=== PATIENT | female | born 1980 | race Caucasian/White ===

== ENCOUNTER 2019-09-30 17:32 | Emergency (ER) | payer OTHER, SELFPAY ==
[2019-09-30 17:35] VITALS: BP 131/86; PULSE 105; RESP 20; TEMP 37.1; O2SAT 100
--- NOTE | 2019-09-30 17:54 | ED.GENADULT ---
HPI - General Adult General Chief complaint: Dental/Oral Stated complaint: Abcess Tooth Time Seen by Provider: 09/30/19 17:54 Source: patient Mode of arrival: ambulatory Limitations: no limitations History of Present Illness HPI narrative: 38-year-old female patient presents to the [facility] with complaints of dental pain that started today. Patient states that she has had issues with her teeth and states that she needs several of them pulled and states she has had dental abscesses before in the past. Denies any fevers, body aches or chills. Denies any coughing. Patient states she noticed a little bump to the left lower gum today that is tender to the touch. Denies taking anything for pain so far. Related Data Home Medications Medication Instructions Recorded Confirmed alprazolam [Xanax] 0.5 mg PO QID 05/19/19 05/19/19 cyclobenzaprine 10 mg PO TID 05/19/19 05/19/19 diltiazem HCl [Cardizem] 60 mg PO TID 05/19/19 05/19/19 diphenhydramine HCl [Benadryl] 50 mg PO DAILY 05/19/19 05/19/19 gabapentin 300 mg PO TID 05/19/19 05/19/19 hydrocodone-acetaminophen 1 tablet PO QID 05/19/19 05/19/19 Allergies Allergy/AdvReac Type Severity Reaction Status Date / Time sulfamethizole Allergy Unknown Rash Verified 09/30/19 17:58 tramadol Allergy Unknown Nausea and Verified 09/30/19 17:58 Vomiting trimethoprim Allergy Unknown Unknown Verified 09/30/19 17:58 Anesthetics - Amide Type Allergy Unknown Verified 09/30/19 17:58 dexamethasone AdvReac Palpitation Verified 09/30/19 18:00 s MACROLIDES Allergy Unknown Rash Uncoded 05/19/19 19:01 NITRICOXIDE Allergy Unknown Nausea and Uncoded 05/19/19 19:01 Vomiting SALICYLATES Allergy Unknown Nausea and Uncoded 05/19/19 19:01 Vomiting XANTHINE Allergy Unknown Unknown Uncoded 05/19/19 19:01 STEROID AdvReac Unknown UNKNOWN Uncoded 01/14/18 18:45 NAME---CAUSED A FIB Review of Systems Review of Systems: Narrative: CONSTITUTIONAL: Denies fever, chills, or sweats. EYES: Denies visual changes, redness, or discharge. ENT: Denies rhinorrhea, congestion, sore throat, or otalgia. Positive left lower dental pain that started today CARDIOVASCULAR: Denies chest pain, palpitations, or edema. RESPIRATORY: Denies cough or dyspnea. GASTROINTESTINAL: Denies abdominal pain, nausea, vomiting, or diarrhea. GENITOURINARY: Denies dysuria or hematuria. SKIN: Denies rash or itching. MUSCULOSKELETAL: Denies back pain, joint pain, or myalgia. NEUROLOGIC: Denies headache, numbness, or weakness. PSYCHIATRIC: Denies anxiety or depression. [facility], [facility] Past Medical History Medical History (Updated 09/30/19 @ 18:06 by EVITA Ferrell) Anxiety Atrial fibrillation Cardiac disorder Tachycardia, ablation and loop recorder Cervical cancer Chronic back pain Degenerative disc disease Depression Migraines Seasonal allergies Surgical History Surgical History (Updated 09/30/19 @ 18:06 by EVITA Ferrell) H/O: hysterectomy History of appendectomy History of cholecystectomy Family History Family History Mother Hypertension Family history of heart disease in male family member before age 55 Social History Social History Smoking status: Never smoker Second hand tobacco smoke exposure: Yes Alcohol intake: never Comments At the time of my signature I agree with nursing past medical history, surgical, social, and family history. There is no relevant family history pertinent to the presenting complaint. Exam Narrative: Exam Narrative: GENERAL: Well-appearing, well-nourished, and in no acute distress. HEAD: Normocephalic, atraumatic. EYES: PERRLA and EOMI. ENT: Nares clear, no rhinorrhea or epistaxis. Mucous membranes moist. Patient has a small reddened area noted to the gum on the left lower oral cavity right under the left lower incisor. There is no open area or discha
== END 2019-09-30 18:05 | disposition home or self-care (01) ==
PROVIDERS: Emergency Provider Nurse Practitioner Family
DX: K04.7 Periapical abscess without sinus (principal)
CPT/HCPCS: 99213; G0463

== ENCOUNTER 2020-01-26 17:13 | Emergency (ER) | payer OTHER, SELFPAY ==
[2020-01-26 17:15] VITALS: BP 129/91; PULSE 93; RESP 20; TEMP 36.7; O2SAT 100
--- NOTE | 2020-01-26 17:28 | ED.DENTAL ---
HPI - Dental/Oral General Chief complaint: Dental/Oral Stated complaint: abcess tooth Time Seen by Provider: 01/26/20 17:28 Source: patient and RN notes reviewed History of Present Illness HPI Narrative: Patient is a 39-year-old female who presents the urgent care with complaints of left lower dental pain with swelling and redness. Patient states that she had a lot of lower [facility] and they did not place her on antibiotic after the extractions. Patient states she then followed up in the ER and was placed on clindamycin which she recently finished in the last couple days. Patient states that she has been using her prescription pain medicine but feels that the abscess is coming back . Patient denies of any known fevers, nausea, vomiting. No other acute complaints. No acute distress noted. Patient had a plan of care. Related Data Home Medications Medication Instructions Recorded Confirmed alprazolam [Xanax] 0.5 mg PO TID 05/19/19 01/26/20 cyclobenzaprine 10 mg PO TID 05/19/19 01/26/20 diltiazem HCl [Cardizem] 60 mg PO TID 05/19/19 01/26/20 gabapentin 300 mg PO QID 05/19/19 01/26/20 bupropion HCl 150 mg PO BID 09/30/19 01/26/20 albuterol sulfate 1 inh INHALATION QID PRN 01/26/20 01/26/20 albuterol sulfate [ProAir HFA] 2 puff INHALATION QID PRN 01/26/20 01/26/20 hydrocodone-acetaminophen 1 tablet PO Q6H PRN 01/26/20 01/26/20 Allergies Allergy/AdvReac Type Severity Reaction Status Date / Time sulfamethizole Allergy Unknown Rash Verified 01/26/20 17:36 trimethoprim Allergy Unknown Unknown Verified 01/26/20 17:36 tramadol AdvReac Unknown Nausea and Verified 01/26/20 17:36 Vomiting albuterol AdvReac Other Verified 01/26/20 17:36 ampicillin AdvReac Other Verified 01/26/20 17:36 Anesthetics - Amide Type AdvReac Other Verified 01/26/20 17:36 aspirin [From Fiorinal] AdvReac Unknown Verified 01/26/20 17:36 butalbital [From Fiorinal] AdvReac Unknown Verified 01/26/20 17:36 caffeine [From Fiorinal] AdvReac Unknown Verified 01/26/20 17:36 dexamethasone AdvReac Other Verified 01/26/20 17:36 erythromycin base AdvReac Palpitation Verified 09/30/19 19:18 s Review of Systems Review of Systems: Narrative: CONSTITUTIONAL: Denies fever, chills, or sweats. EYES: Denies visual changes, redness, or discharge. ENT: Denies rhinorrhea, congestion, sore throat, or otalgia. Reports of lower left dental pain with gum redness and swelling CARDIOVASCULAR: Denies chest pain, palpitations, or edema. RESPIRATORY: Denies cough or dyspnea. GASTROINTESTINAL: Denies abdominal pain, nausea, vomiting, or diarrhea. GENITOURINARY: Denies dysuria or hematuria. SKIN: Denies rash or itching. MUSCULOSKELETAL: Denies back pain, joint pain, or myalgia. NEUROLOGIC: Denies headache, numbness, or weakness. All other systems reviewed are negative, except as documented in HPI. [facility] Past Medical History Medical History (Updated 01/26/20 @ 17:39 by EVITA Wheatley) Anxiety Atrial fibrillation Cardiac disorder Tachycardia, ablation and loop recorder Cervical cancer Chronic back pain Degenerative disc disease Depression Migraines Seasonal allergies Surgical History Surgical History (Updated 09/30/19 @ 18:06 by EVITA Ferrell) H/O: hysterectomy History of appendectomy History of cholecystectomy Social History Social History Smoking status: Never smoker Second hand tobacco smoke exposure: Yes Alcohol intake: never Comments At the time of my signature, I reviewed and agree with the nursing past medical, surgical, social, and family history. There is no relevant family history pertinent to the patient complaint. Exam Narrative: Exam Narrative: GENERAL: This is a well-nourished, well-developed patient, in no apparent distress. HEAD: normocephalic, atraumatic. EYES: PERRL. Sclera clear/white. Vision is grossly intact. EARS: External
== END 2020-01-26 17:45 | disposition home or self-care (01) ==
PROVIDERS: Emergency Provider Nurse Practitioner Family
DX: K04.7 Periapical abscess without sinus (principal); K05.10 Chronic gingivitis, plaque induced; I48.91 Unspecified atrial fibrillation; F41.9 Anxiety disorder, unspecified; F32.9 Major depressive disorder, single episode, unspecified; Z85.41 Personal history of malignant neoplasm of cervix uteri
CPT/HCPCS: 99213; G0463

== ENCOUNTER 2020-07-20 15:21 | Emergency (ER) | payer OTHER, SELFPAY ==
[2020-07-20 15:25] VITALS: BP 120/81; PULSE 95; RESP 16; TEMP 37.1; O2SAT 98
--- NOTE | 2020-07-20 15:49 | ED.DENTAL ---
HPI - Dental/Oral General Stated complaint: jaw joint pain Time Seen by Provider: 07/20/20 15:49 Source: patient and RN notes reviewed History of Present Illness HPI Narrative: Patient is a 39-year-old female who presents the urgent care with complaints of jaw and right facial pain. Patient states that she had a TMJ flare on Saturday which seemed to improve. However the last 2 days have had increased right-sided facial pressure causing a migraine and another TMJ fit. Patient states that she does take 50 of Benadryl every morning as well as Flonase nasal spray. Patient denies of any dental pain, fever, chills, nausea, vomiting. Patient states that she did get all of her dentition fixed/pulled and is waiting on dentures. No other acute complaints. No acute distress noted. Patient aware of the plan of care. Some parts of this dictation were generated by voice recognition software and may contain typographical and/or grammatical inaccuracies. Related Data Home Medications Medication Instructions Recorded Confirmed alprazolam [Xanax] 0.5 mg PO TID 05/19/19 07/20/20 cyclobenzaprine 10 mg PO TID 05/19/19 07/20/20 diltiazem HCl [Cardizem] 60 mg PO TID 05/19/19 07/20/20 gabapentin 300 mg PO QID 05/19/19 07/20/20 bupropion HCl 150 mg PO BID 09/30/19 07/20/20 albuterol sulfate 1 inh INHALATION QID PRN 01/26/20 07/20/20 hydrocodone-acetaminophen 1 tablet PO Q6H PRN 01/26/20 07/20/20 Allergies Allergy/AdvReac Type Severity Reaction Status Date / Time sulfamethizole Allergy Unknown Rash Verified 07/20/20 15:25 trimethoprim Allergy Unknown Unknown Verified 07/20/20 15:25 tramadol AdvReac Unknown Nausea and Verified 07/20/20 15:25 Vomiting albuterol AdvReac Other Verified 07/20/20 15:25 ampicillin AdvReac Other Verified 07/20/20 15:25 Anesthetics - Amide Type - AdvReac Other Verified 07/20/20 15:25 Select A [Anesthetics - Amide Type] aspirin [From Fiorinal] AdvReac Unknown Verified 07/20/20 15:25 butalbital [From Fiorinal] AdvReac Unknown Verified 07/20/20 15:25 caffeine [From Fiorinal] AdvReac Unknown Verified 07/20/20 15:25 dexamethasone AdvReac Other Verified 07/20/20 15:25 erythromycin base AdvReac Palpitation Verified 07/20/20 15:25 s Review of Systems Review of Systems: Narrative: CONSTITUTIONAL: Denies fever, chills, or sweats. EYES: Denies visual changes, redness, or discharge. ENT: Denies rhinorrhea, congestion, sore throat, or otalgia. Reports of right sided jaw pain and facial pain CARDIOVASCULAR: Denies chest pain, palpitations, or edema. RESPIRATORY: Denies cough or dyspnea. GASTROINTESTINAL: Denies abdominal pain, nausea, vomiting, or diarrhea. GENITOURINARY: Denies dysuria or hematuria. SKIN: Denies rash or itching. MUSCULOSKELETAL: Denies back pain, joint pain, or myalgia. NEUROLOGIC: Denies headache, numbness, or weakness. All other systems reviewed are negative, except as documented in HPI. [facility]CLUD[facility] Past Medical History Medical History (Updated 07/20/20 @ 16:02 by EVITA Wheatley) Anxiety Atrial fibrillation Cardiac disorder Tachycardia, ablation and loop recorder Cervical cancer Chronic back pain Degenerative disc disease Depression Migraines Seasonal allergies Surgical History Surgical History (Updated 09/30/19 @ 18:06 by EVITA Ferrell) H/O: hysterectomy History of appendectomy History of cholecystectomy Family History Family History Mother Hypertension Family history of heart disease in male family member before age 55 Social History Social History Smoking status: Never smoker Second hand tobacco smoke exposure: Yes Alcohol intake: never Comments At the time of my signature, I reviewed and agree with the nursing past medical, surgical, social, and family history. There is no relevant family history pertinent to the patient complaint
== END 2020-07-20 16:05 | disposition home or self-care (01) ==
PROVIDERS: Emergency Provider Nurse Practitioner Family
DX: J32.9 Chronic sinusitis, unspecified (principal); M26.621 Arthralgia of right temporomandibular joint; F41.9 Anxiety disorder, unspecified; I48.91 Unspecified atrial fibrillation; F32.9 Major depressive disorder, single episode, unspecified; Z85.41 Personal history of malignant neoplasm of cervix uteri
CPT/HCPCS: 99213; G0463

== ENCOUNTER 2021-10-20 12:47 | Emergency (ER) | payer OTHER, SELFPAY ==
[2021-10-20 12:54] VITALS: BP 119/82; PULSE 86; RESP 16; TEMP 36.8; O2SAT 98
--- NOTE | 2021-10-20 13:40 | ED.FEMALEGU ---
HPI - Female Genitourinary General Chief complaint: Urogenital-Female Stated complaint: poss uti Time Seen by Provider: 10/20/21 13:40 Source: patient and RN notes reviewed Mode of arrival: ambulatory Limitations: no limitations History of Present Illness HPI Narrative: 40-year-old female presented for complaint of suprapubic pressure, urinary frequency and urgency onset 10/11/2021, worsening over the past 3 days. States urine is dark in color, endorses nausea, decreased appetite and bilateral low back pain. She denies abdominal pain, vomiting, fevers or chills. Related Data Home Medications Medication Instructions Recorded Confirmed diltiazem HCl 60 mg tablet 60 mg PO TID 05/19/19 10/20/21 (Cardizem) albuterol sulfate 90 mcg/actuation 1 inh inhalation QID PRN Shortness 01/26/20 10/20/21 aerosol inhaler Of Breath Or Wheezing cyclobenzaprine 10 mg tablet 10 mg PO TID PRN Muscle Spasm 10/20/21 10/20/21 sertraline 100 mg tablet 1 tablet PO BID 10/20/21 10/20/21 Allergies Allergy/AdvReac Type Severity Reaction Status Date / Time sulfamethizole Allergy Unknown Rash Verified 10/20/21 13:25 trimethoprim Allergy Unknown Unknown Verified 10/20/21 13:25 tramadol AdvReac Unknown Nausea and Verified 10/20/21 13:25 Vomiting albuterol AdvReac Other Verified 10/20/21 13:25 ampicillin AdvReac Other Verified 10/20/21 13:25 Anesthetics - Amide Type - AdvReac Other Verified 10/20/21 13:25 Select A [Anesthetics - Amide Type] aspirin [From Fiorinal] AdvReac Unknown Verified 10/20/21 13:25 butalbital [From Fiorinal] AdvReac Unknown Verified 10/20/21 13:25 caffeine [From Fiorinal] AdvReac Unknown Verified 10/20/21 13:25 dexamethasone AdvReac Other Verified 10/20/21 13:25 erythromycin base AdvReac Palpitation Verified 10/20/21 13:25 s Review of Systems Review of Systems: CONSTITUTIONAL: Denies body aches, fever, chills, or sweats. CARDIOVASCULAR: Denies chest pain, palpitations, or edema. RESPIRATORY: Denies cough or dyspnea. GASTROINTESTINAL: Denies abdominal pain, vomiting, or diarrhea. GENITOURINARY: Reports dysuria, frequency, urgency SKIN: Denies rash, itching, or wounds. MUSCULOSKELETAL: Denies back pain or myalgia. [facility] Past Medical History Medical History Anxiety Atrial fibrillation Cardiac disorder Tachycardia, ablation and loop recorder Cervical cancer Chronic back pain Degenerative disc disease Depression Migraines Seasonal allergies Surgical History Surgical History H/O: hysterectomy History of appendectomy History of cholecystectomy Family History Family History Mother Hypertension Family history of heart disease in male family member before age 55 Social History Social History Smoking packs per day: 0.5 Smoking cigarettes per day: 10.0 Years smoked: 27 Smoking pack-years: 13.50 Smoking status: Current every day smoker Second hand tobacco smoke exposure: Yes Alcohol intake: never Substance use: never Comments At time of signature, I have reviewed and agree with nursing past medical, surgical, social and family history unless otherwise noted. Please see nursing chart for further information. There is no relevant family history pertinent to the presenting complaint Exam Narrative: GENERAL: ill appearing, nontoxic ENT: Mucous membranes pink and moist. CHEST: No respiratory distress. Clear to auscultation. HEART: Regular rate and rhythm. ABDOMEN: Soft, tender to suprapubic chastity, nondistended, normal active bowel sounds. No CVA tenderness MUSCULOSKELETAL: No bony tenderness. SKIN: Warm, dry, no rash. NEURO: No focal deficits. Alert and oriented x3. Gait steady. Course Course Emergency Course: Patient is aware of diagn
== END 2021-10-20 13:55 | disposition home or self-care (01) ==
PROVIDERS: Emergency Provider Nurse Practitioner Family; PCP Internal Medicine
DX: N39.0 Urinary tract infection, site not specified (principal); F17.210 Nicotine dependence, cigarettes, uncomplicated; I48.91 Unspecified atrial fibrillation; F41.9 Anxiety disorder, unspecified; F32.A Depression, unspecified; Z85.41 Personal history of malignant neoplasm of cervix uteri
CPT/HCPCS: 81003; 87077; 87086; 87186; 99213; G0463

== ENCOUNTER 2021-10-25 16:07 | Emergency (ER) | payer OTHER, SELFPAY ==
[2021-10-25 16:20] VITALS: BP 119/81; PULSE 98; RESP 20; TEMP 36.8; O2SAT 98
--- NOTE | 2021-10-25 17:14 | ED.FEMALEGU ---
HPI - Female Genitourinary General Chief complaint: Urogenital-Female Stated complaint: poss uti Time Seen by Provider: 10/25/21 17:14 Source: patient and RN notes reviewed Mode of arrival: ambulatory Limitations: no limitations History of Present Illness HPI Narrative: 40 year old female who presents to [facility] care with stated continued complaints of abdominal cramping and radiation of pain into her back after taking RX of Macrobid for 5 days. Patient states that urinary burning is gone after taking Macrobid but continues to have some abdominal cramping with radiation of pain to right flank area and urinary urgency. Patient denies any history of kidney stones.Patient has appointment with PCP on the for follow up. Patient denies any vaginal discharge or any itching states no concerns for STD exposure. Patient denies any fevers chills or sweats, denies any nausea or vomiting. MD elicited complaint: dysuria and UTI Related Data Home Medications Medication Instructions Recorded Confirmed diltiazem HCl 60 mg tablet 60 mg PO TID 05/19/19 10/25/21 (Cardizem) albuterol sulfate 90 mcg/actuation 1 inh inhalation QID PRN Shortness 01/26/20 10/25/21 aerosol inhaler Of Breath Or Wheezing cyclobenzaprine 10 mg tablet 10 mg PO TID PRN Muscle Spasm 10/20/21 10/25/21 sertraline 100 mg tablet 1 tablet PO BID 10/20/21 10/25/21 oxycodone-acetaminophen 10 mg-325 1 tablet PO Q4H PRN Pain 10/25/21 10/25/21 mg tablet quetiapine 50 mg tablet (Seroquel) 50 mg PO HS 10/25/21 10/25/21 Allergies Allergy/AdvReac Type Severity Reaction Status Date / Time sulfamethizole Allergy Unknown Rash Verified 10/25/21 16:52 trimethoprim Allergy Unknown Unknown Verified 10/25/21 16:52 tramadol AdvReac Unknown Nausea and Verified 10/25/21 16:52 Vomiting albuterol AdvReac Other Verified 10/25/21 16:52 ampicillin AdvReac Other Verified 10/25/21 16:52 Anesthetics - Amide Type - AdvReac Other Verified 10/25/21 16:52 Select A [Anesthetics - Amide Type] aspirin [From Fiorinal] AdvReac Unknown Verified 10/25/21 16:52 butalbital [From Fiorinal] AdvReac Unknown Verified 10/25/21 16:52 caffeine [From Fiorinal] AdvReac Unknown Verified 10/25/21 16:52 dexamethasone AdvReac Other Verified 10/25/21 16:52 erythromycin base AdvReac Palpitation Verified 10/20/21 13:25 s Review of Systems Review of Systems: CONSTITUTIONAL: Denies fever, chills, or sweats. EYES: Denies visual changes, redness, or discharge. ENT: Denies rhinorrhea, congestion, sore throat, or otalgia. CARDIOVASCULAR: Denies chest pain, palpitations, or edema. RESPIRATORY: Denies cough or dyspnea. GASTROINTESTINAL: Reports some abdominal crampy, no nausea, vomiting, or diarrhea. GENITOURINARY: Reports urgency states burning is gone, no visible hematuria SKIN: Denies rash or itching. MUSCULOSKELETAL: Denies back pain, joint pain, or myalgia. NEUROLOGIC: Denies headache, numbness, or weakness. PSYCHIATRIC: Positive for history of anxiety or depression. [facility] Past Medical History Medical History Anxiety Atrial fibrillation Cardiac disorder Tachycardia, ablation and loop recorder Cervical cancer Chronic back pain Degenerative disc disease Depression Migraines Seasonal allergies Surgical History Surgical History H/O: hysterectomy History of appendectomy History of cholecystectomy Family History Family History Mother Hypertension Family history of heart disease in male family member before age 55 Social History Social History (Updated 10/27/21 @ 19:17 by Irma Layne NP) Smoking packs per day: 0.5 Smoking cigarettes per day: 10.0 Years smoked: 27 Smoking pack-years: 13.50 Smoking status: Current every day smoker Second hand tobacco smoke exposure: Yes Alcohol intake: never Subs
== END 2021-10-25 17:36 | disposition home or self-care (01) ==
PROVIDERS: Emergency Provider Registered Nurse
DX: R39.15 Urgency of urination (principal); R10.9 Unspecified abdominal pain; F17.210 Nicotine dependence, cigarettes, uncomplicated; F41.9 Anxiety disorder, unspecified; F32.A Depression, unspecified; I48.91 Unspecified atrial fibrillation; Z85.41 Personal history of malignant neoplasm of cervix uteri
CPT/HCPCS: 81003; 99213; G0463

== ENCOUNTER 2022-06-28 17:45 | Emergency (ER) | payer OTHER, SELFPAY ==
[2022-06-28 17:55] VITALS: BP 122/87; PULSE 82; RESP 20; TEMP 36.8; O2SAT 99
--- NOTE | 2022-06-28 18:39 | ED.DENTAL ---
HPI - Dental/Oral General Chief complaint: Dental/Oral Stated complaint: Abcess tooth Source: patient and RN notes reviewed History of Present Illness HPI Narrative: 41-year-old female presents to urgent care with complaints of left upper dental pain and swelling. Patient states she was treated for an ear infection with cephalexin approximately 2 weeks ago. Patient states this pain has been ever since she took her 3rd day of cephalexin. Patient denies any vomiting but reports nausea. Denies any fevers but reports chills. Denies any chest pain or shortness of breath. Some parts of this dictation were generated by voice recognition software and may contain typographical and/or grammatical inaccuracies. Related Data Home Medications Medication Instructions Recorded Confirmed diltiazem HCl 60 mg tablet 60 mg PO TID 05/19/19 06/28/22 (Cardizem) albuterol sulfate 90 mcg/actuation 1 inh inhalation QID PRN Shortness 01/26/20 06/28/22 aerosol inhaler Of Breath Or Wheezing cyclobenzaprine 10 mg tablet 10 mg PO TID PRN Muscle Spasm 10/20/21 06/28/22 oxycodone-acetaminophen 10 mg-325 1 tablet PO Q4H PRN Pain 10/25/21 06/28/22 mg tablet quetiapine 50 mg tablet (Seroquel) 50 mg PO HS 10/25/21 06/28/22 Allergies Allergy/AdvReac Type Severity Reaction Status Date / Time sulfamethizole Allergy Unknown Rash Verified 06/28/22 17:56 trimethoprim Allergy Unknown Unknown Verified 06/28/22 17:56 tramadol AdvReac Unknown Nausea and Verified 06/28/22 17:56 Vomiting albuterol AdvReac Other Verified 06/28/22 17:56 ampicillin AdvReac Other Verified 06/28/22 17:56 Anesthetics - Amide Type - AdvReac Other Verified 06/28/22 17:56 Select A [Anesthetics - Amide Type] aspirin [From Fiorinal] AdvReac Unknown Verified 06/28/22 17:56 butalbital [From Fiorinal] AdvReac Unknown Verified 06/28/22 17:56 caffeine [From Fiorinal] AdvReac Unknown Verified 06/28/22 17:56 dexamethasone AdvReac Other Verified 06/28/22 17:56 erythromycin base AdvReac Palpitation Verified 06/28/22 17:56 s Review of Systems Review of Systems: CONSTITUTIONAL: Denies fever, chills, or sweats. EYES: Denies visual changes, redness, or discharge. ENT: Reports left upper dental pain CARDIOVASCULAR: Denies chest pain, palpitations, or edema. RESPIRATORY: Denies cough or dyspnea. GASTROINTESTINAL: Denies abdominal pain, nausea, vomiting, or diarrhea. GENITOURINARY: Denies dysuria or hematuria. SKIN: Denies rash or itching. MUSCULOSKELETAL: Denies back pain, joint pain, or myalgia. NEUROLOGIC: Denies headache, numbness, or weakness. [facility] Past Medical History Medical History Anxiety Atrial fibrillation Cardiac disorder Tachycardia, ablation and loop recorder Cervical cancer Chronic back pain Degenerative disc disease Depression Migraines Seasonal allergies Surgical History Surgical History H/O: hysterectomy History of appendectomy History of cholecystectomy Family History Family History Mother Hypertension Family history of heart disease in male family member before age 55 Social History Social History (Updated 10/31/21 @ 08:56 by DIANE Daniel) Smoking packs per day: 0.5 Smoking cigarettes per day: 10.0 Years smoked: 27 Smoking pack-years: 13.50 Smoking status: Current every day smoker Second hand tobacco smoke exposure: Yes Alcohol intake: never Substance use: current Substance use type: opiates Last use: for chronic back pain Living arrangements: other Additional living arrangements comments: Occupation/Education: occupation Additional occupation/education comments: PA Gender identity (if verbalized by the patient): Female Sexual Orientation (if Verbalized by the Patient): Straight or Heterosexual Comments At
== END 2022-06-28 18:43 | disposition home or self-care (01) ==
PROVIDERS: Emergency Provider Nurse Practitioner Family
DX: K08.89 Other specified disorders of teeth and supporting structures (principal); F17.210 Nicotine dependence, cigarettes, uncomplicated; I48.91 Unspecified atrial fibrillation; F32.A Depression, unspecified; Z85.41 Personal history of malignant neoplasm of cervix uteri
CPT/HCPCS: 99213; G0463

== ENCOUNTER 2022-12-18 15:41 | Emergency (ER) | payer OTHER, SELFPAY ==
[2022-12-18 15:46] VITALS: BP 121/78; PULSE 89; RESP 14; TEMP 36.9; O2SAT 100
--- NOTE | 2022-12-18 16:38 | ED.GENADULT ---
HPI - General Adult General Chief complaint: Urogenital-Female Stated complaint: Sinus Pain/Urinary Problem Source: patient and RN notes reviewed History of Present Illness HPI narrative: 42-year-old female presents to urgent care with multiple medical complaints. Pt states she has had left upper dental pain and gum swelling for 2 weeks. Pt states she has now been having intermittent HAs, sore throat, left ear pain, lethargy, and lower abdominal cramping for the last couple days. Pt states she thinks she may have a UTI due to dysuria and foul smelling urine. Denies any vomiting, diarrhea, chest pain, or fevers. Pt reports chills. Related Data Home Medications Medication Instructions Recorded Confirmed diltiazem HCl 60 mg tablet 60 mg PO TID 05/19/19 12/18/22 (Cardizem) albuterol sulfate 90 mcg/actuation 1 inh inhalation QID PRN Shortness 01/26/20 12/18/22 aerosol inhaler Of Breath Or Wheezing quetiapine 50 mg tablet (Seroquel) 50 mg PO HS 10/25/21 12/18/22 Allergies Allergy/AdvReac Type Severity Reaction Status Date / Time sulfamethizole Allergy Unknown Rash Verified 12/18/22 15:49 trimethoprim Allergy Unknown Unknown Verified 12/18/22 15:49 tramadol AdvReac Unknown Nausea and Verified 12/18/22 15:49 Vomiting albuterol AdvReac Other Verified 12/18/22 15:49 ampicillin AdvReac Other Verified 12/18/22 15:49 Anesthetics - Amide Type - AdvReac Other Verified 12/18/22 15:49 Select A [Anesthetics - Amide Type] aspirin [From Fiorinal] AdvReac Unknown Verified 12/18/22 15:49 butalbital [From Fiorinal] AdvReac Unknown Verified 12/18/22 15:49 caffeine [From Fiorinal] AdvReac Unknown Verified 12/18/22 15:49 dexamethasone AdvReac Other Verified 12/18/22 15:49 erythromycin base AdvReac Palpitation Verified 06/28/22 17:56 s Review of Systems Review of Systems: Pertinent positives and pertinent negatives per HPI. [facility] Past Medical History Medical History Anxiety Atrial fibrillation Cardiac disorder Tachycardia, ablation and loop recorder Cervical cancer Chronic back pain Degenerative disc disease Depression Migraines Seasonal allergies Surgical History Surgical History H/O: hysterectomy History of appendectomy History of cholecystectomy Family History Family History Mother Hypertension Family history of heart disease in male family member before age 55 Social History Social History (Updated 10/31/21 @ 08:56 by DIANE Daniel) Smoking packs per day: 0.5 Smoking cigarettes per day: 10.0 Years smoked: 27 Smoking pack-years: 13.50 Smoking status: Current every day smoker Second hand tobacco smoke exposure: Yes Alcohol intake: never Substance use: current Substance use type: opiates Last use: for chronic back pain Living arrangements: other Additional living arrangements comments: Occupation/Education: occupation Additional occupation/education comments: PA Gender identity (if verbalized by the patient): Female Sexual Orientation (if Verbalized by the Patient): Straight or Heterosexual Comments At the time of my signature, I reviewed and agree with the nursing past medical, surgical, social, and family history. There is no relevant family history pertinent to the patient complaint. Exam Narrative: GENERAL: This is a well-nourished, well-developed patient, in no apparent distress. HEAD: normocephalic, atraumatic. EYES: Sclera clear/white. Vision is grossly intact. EARS: External ears normal, auditory canals clear and without drainage, TMs normal without perforation. Hearing grossly intact. NOSE: External nose normal with no obvious nasal discharge, nares without redness, no rhinorrhea. THROAT: Mucous membranes moist, posterior pharynx clear. NECK: Neck supple, non
== END 2022-12-18 16:50 | disposition home or self-care (01) ==
PROVIDERS: Emergency Provider Nurse Practitioner Family; PCP Hospitalist
DX: K04.7 Periapical abscess without sinus (principal); B34.9 Viral infection, unspecified; F17.210 Nicotine dependence, cigarettes, uncomplicated; I48.91 Unspecified atrial fibrillation; F41.9 Anxiety disorder, unspecified; F32.A Depression, unspecified; Z85.41 Personal history of malignant neoplasm of cervix uteri
CPT/HCPCS: 81003; 87081; 87880; 99213; G0463